=== PATIENT | female | born 1970 | race Hispanic/Latino ===

== ENCOUNTER 2021-07-13 07:29 | Day surgery (SDC) | payer BC ==
[2021-07-13 08:02] LABS: Absolute Lymphocytes (CBC) 1.8 K/uL (0.7-4.9); Basophils % 0.7 % (0-1.3); Hematocrit 41.1 % (36.0-45.0); Lymphocytes % 29.8 % (15.3-44.8); MPV 10.3 fL (7.6-11.3); RBC Red Blood Cell Count 4.47 M/uL (3.86-4.86)
[2021-07-13 08:11] LABS: Potassium 3.8 mmol/L (3.5-5.1)
--- NOTE | 2021-07-13 08:20 | RAD REPORT ---
EXAM DESCRIPTION: RAD - Chest Pa And Lat (2 Views) - 07/13/2021 8:12 am CLINICAL HISTORY: SAME DAY SURGERY, BED 7, STAT COMPARISON: <Comparisons> FINDINGS: Lines: None. Lungs: No evidence of edema or pneumonia. Pleural: No significant pleural effusions or pneumothorax. Cardiac: The heart size is within normal limits. Bones: No acute fractures. Other: IMPRESSION: No acute cardiopulmonary disease.
[2021-07-13] MEDS ORDERED: BUPIVACAINE 0.5% PF 10 ML VIAL ONE (08:43)
[2021-07-13] MEDS ORDERED: propofoL 200 MG/20 ML VIAL IV ONE (08:43)
[2021-07-13] MEDS ORDERED: dexAMETHasone 10 MG/ML VIAL ONE (08:43)
[2021-07-13] MEDS ORDERED: LIDOCAINE 2% MPF 5 ML VIAL ONE (08:43)
[2021-07-13] MEDS ORDERED: ONDANSETRON 4 MG/2 ML VIAL ONE ×2 (08:43→11:49)
[2021-07-13] MEDS ORDERED: FENTANYL CITR 100 MCG/2 ML ONE (08:43)
[2021-07-13] MEDS ORDERED: MIDAZOLAM HCL 2 MG/2 ML INJ ONE (08:43)
[2021-07-13] MEDS ORDERED: NA CHLORIDE 0.9% 1,000 ML ONE (09:12)
[2021-07-13] MEDS ORDERED: CEFAZOLIN/NS 1gm 1 GM/50 ML BAG ONE (10:47)
[2021-07-13] MEDS ORDERED: Mastisol Adhesive Liq ONE (11:15)
[2021-07-13] MEDS ORDERED: GLYCOPYRROLATE 0.2 MG/ML SYR ONE (11:15)
[2021-07-13 11:16] VITALS: O2SAT 100
[2021-07-13] MEDS: HYDROMORPHONE HCL 1 MG/ML INJ ONE ×2 (11:26→11:34)
[2021-07-13] MEDS ORDERED: KETOROLAC 30 MG/ML INJ ONE (11:27)
[2021-07-13] MEDS ORDERED: HYDROCODONE/APAP 7.5/325 MG TAB ONE (12:29)
[2021-07-13 13:25] VITALS: BP 120/80; TEMP 97
--- NOTE | 2021-07-13 18:07 | EKG ---
Test Date: 2021-07-13 Test Time: 07:23:56 Repairer Evaporator: VISH MEASUREMENT RESULTS: Intervals: Rate: 57 MA: 158 QRSD: 88 QT: 440 QTc: 428 [place]: P: 23 MA: 158 QRS: 9 T: 19 INTERPRETIVE STATEMENTS: Sinus bradycardia Otherwise normal ECG No previous ECG available for comparison Electronically Signed On 07-13-21 18:05:33 CDT by Joshua Husain
--- NOTE | 2021-07-13 19:42 | OP ---
Date of Procedure: 07/13/2021 Surgeon: Donnell Suero MD Senior Consumer Insights Consultant: None. Preoperative Diagnosis: Right breast mass, pyogenic granuloma versus cancer. Postoperative Diagnosis: Right breast mass, pyogenic granuloma versus cancer. Procedure: Wide excision of right breast mass. Estimated Blood Loss: Minimal. Specimens: Right breast mass. Findings: It is either basal cell or squamous cell carcinoma. Does not appear to be breast cancer t hat was on the frozen section. Anesthesia: General. Complications: None. Disposition: The patient tolerated the procedure in stable condition and taken to Recovery in good g eneral condition. Procedure In Detail: The patient was brought to the OR, placed in supine position. General anesthes ia begun. The patient was prepped and draped in the usual sterile fashion. Marcaine 0.5% infiltrate d locally. A 15 blade was used to make approximately 4 x 1 cm incision at the base of this raised fu ngating mass and what appeared to be a pyogenic granuloma clinically. The incision went through the subcutaneous tissue into the breast tissue and the entire mass was excised and sent to Pathology as a frozen section for diagnosis only and it turned out either a basal cell or squamous cell carcinoma. Wound irrigated. Bleeding controlled with cautery. Then, a 3-0 chromic was used to approximate the subcutaneous tissue and close the skin. Sterile dressing applied. The patient was awakened and joelle en to Recovery in good general condition. Discharge Note: The patient will go to Day Surgery and home when stable. Disposition: Home. Condition: Stable. Discharge Instructions: Resume home medications and diet. Activity as tolerated. Remove outer dres sing in 2 days. Shower. Keep wound clean and dry. Keep Steri-Strips on at all times. Follow up in my office in a week. Call for appointment. Tylenol No.3 one tablet p.o. q.4 p.r.n. pain. /MODL Voice ID: [id number] Report ID: [id number]
== END 2021-07-13 13:00 | disposition home or self-care (01) ==
LOC: OR 07:29
PROVIDERS: ATTEND Surgery
PROC: 0HBT0ZZ Excision of Right Breast, Open Approach (ICD-10-PCS; principal; 2021-07-13 10:00)
DX: C50.811 Malignant neoplasm of overlapping sites of right female breast (principal); Z20.822 Contact with and (suspected) exposure to COVID-19
CPT/HCPCS: 19120; 93005; 85025; 80048; 36415; 82947 ×2; 88331; 88305; 71046; U0003; J2704; J2250; J3010; J1100; J1170; J0690; J7030; J2405 ×2

== ENCOUNTER 2021-07-29 06:27 | Day surgery (SDC) | payer BC ==
[2021-07-29 06:48] LABS: Specific Gravity 1.025 (1.005-1.030)
[2021-07-29] MEDS ORDERED: CEFAZOLIN/NS 1gm 1 GM/50 ML BAG ONE (07:10)
[2021-07-29] MEDS ORDERED: NA CHLORIDE 0.9% 1,000 ML ONE (07:10)
[2021-07-29] MEDS ORDERED: CELECOXIB 100 MG CAPSULE ONE (07:39)
[2021-07-29] MEDS ORDERED: ACETAMINOPHEN 500 MG TAB ONE (07:40)
[2021-07-29] MEDS ORDERED: MIDAZOLAM HCL 2 MG/2 ML INJ ONE (07:42)
[2021-07-29] MEDS ORDERED: FENTANYL CITR 100 MCG/2 ML ONE ×2 (07:42→09:14)
[2021-07-29] MEDS ORDERED: propofoL 200 MG/20 ML VIAL IV ONE (07:42)
[2021-07-29] MEDS ORDERED: LIDOCAINE 2% MPF 5 ML VIAL ONE (07:44)
[2021-07-29] MEDS ORDERED: ONDANSETRON 4 MG/2 ML VIAL ONE (07:44)
[2021-07-29] MEDS ORDERED: dexAMETHasone 10 MG/ML VIAL ONE (07:45)
[2021-07-29] MEDS ORDERED: KETOROLAC 30 MG/ML INJ ONE (08:32)
[2021-07-29] MEDS ORDERED: Mastisol Adhesive Liq ONE (08:32)
[2021-07-29] MEDS ORDERED: MEPERIDINE HCL 25 MG/ML SYR ONE (08:55)
--- NOTE | 2021-07-29 09:10 | OP ---
Date of Procedure: 07/29/2021 Surgeon: Donnell Suero MD Pit Hand: THANH De Leon. Preoperative Diagnosis: Right breast cancer, sebaceous carcinoma. Postoperative Diagnosis: Right breast cancer, sebaceous carcinoma. Procedure: Wide excision of right breast cancer with frozen section. Estimated Blood Loss: Minimal. Specimen: Right breast tissue. Findings: Margins were free. Anesthesia: General. Complications: None. Disposition: The patient tolerated the procedure in stable condition and taken to Recovery in good g eneral condition. Procedure In Detail: The patient was brought to the OR and placed in supine position. General anest hesia begun. The patient was prepped and draped in usual sterile fashion and then Marcaine 0.5% infi ltrated all the way around the previous scar approximately 1.0 to 1.5 cm. Skin margins incised and e llipsed skin. The entire previous scar was excised down through the subcutaneous tissue. Flaps were created as well to get the fat on both sides and then entire specimen was sent to Pathology. Frozen section and 2 areas revealed no evidence of remaining disease. The entire wound was irrigated. Ble eding controlled with cautery. A 3-0 chromic used to approximate subcutaneous tissue and close the s kin. Sterile dressing applied. The patient was awakened and taken to Recovery in good general condi tion. Discharge Note: The patient will go to Day Surgery and home when stable. Disposition: Home. Condition: Stable. Discharge Instructions: Resume home medications and diet. Activity as tolerated. No heavy lifting. Remove outer dressing in 2-3 days. Shower. Keep wound clean and dry. Keep Steri-Strips on at all times. Follow up in my office in 1 week. Call for appointment. /ISAAKL Voice ID: [id number] Report ID: [id number]
[2021-07-29] MEDS ORDERED: HYDROCODONE/APAP 7.5/325 MG TAB ONE (09:45)
[2021-07-29 10:35] VITALS: BP 109/58; TEMP 97.2
[2021-07-29 10:36] VITALS: O2SAT 109
== END 2021-07-29 10:15 | disposition home or self-care (01) ==
LOC: OR 06:27
PROVIDERS: ATTEND Surgery
PROC: 0HBT0ZX Excision of Right Breast, Open Approach, Diagnostic (ICD-10-PCS; 2021-07-29)
PROC: 0HB5XZZ Excision of Chest Skin, External Approach (ICD-10-PCS; 2021-07-29)
PROC: 0HBT0ZZ Excision of Right Breast, Open Approach (ICD-10-PCS; principal; 2021-07-29 07:30)
DX: C50.911 Malignant neoplasm of unspecified site of right female breast (principal); Z20.822 Contact with and (suspected) exposure to COVID-19
CPT/HCPCS: 81025; 82947; 88305; 88331; 88332; J0690; J1100; J2175; J2250; J2405; J2704; J3010; J7030; U0003